=== PATIENT | female | born 1970 | race Caucasian/White ===

== ENCOUNTER 2016-11-11 19:07 | Emergency (ER) | payer MEDICAID ==
[~2016-11-11] VITALS: Ht 152.4 cm; Wt 70.0 kg
[~2016-11-11 19:07] MED LIST: FERR-43 PO; SIMV20TA2 PO
[2016-11-11] MEDS ORDERED: MORPHINE SULFATE 4 MG/ML CPJ (NOT FOR IM USE) IV STA (22:52)
[2016-11-11] MEDS ORDERED: ONDANSETRON HCL 4MG/2ML VIAL IV STA (22:52)
[2016-11-11 23:13] LABS: BASOPHILS % 1.1 % (0.0-2.0); EOSINOPHILS % 6.1 % (0.0-5.0); HEMATOCRIT. 34.1 % (36.0-48.0); HEMOGLOBIN. 11.5 g/dL (12.0-16.0); MEAN CORPUSCULAR HEMOGLOBIN 29.8 pg (28.0-32.0); MEAN CORPUSCULAR VOLUME 88.5 fL (81.0-99.0); MEAN PLATELET VOLUME 7.6 fl (7.4-10.4); MONOCYTES % 9.9 % (2.0-8.0); NEUTROPHILS % 42.9 % (40.0-76.0); PLATELET 328 x1000/uL (130-400); RED BLOOD CELL COUNT 3.86 mill/uL (4.2-5.4); RED CELL DISTRIBUTION WIDTH 13.5 % (11.6-14.6)
[2016-11-11 23:15] LABS: CHLORIDE 105 mEq/L (98-107)
[2016-11-11 23:17] LABS: CARBON DIOXIDE 25 mEq/L (21-32)
[2016-11-11] MEDS ORDERED: KETOROLAC 30MG/ML VIAL IV ONE (23:30)
[2016-11-11 23:58] VITALS: BP 116/79
== END 2016-11-12 02:09 | disposition home or self-care (01) ==
LOC: ER 22:14
DX: S29.012A Strain of muscle and tendon of back wall of thorax, initial encounter (principal); J45.909 Unspecified asthma, uncomplicated; K76.0 Fatty (change of) liver, not elsewhere classified; Z98.890 Other specified postprocedural states; X58.XXXA Exposure to other specified factors, initial encounter; Y93.89 Activity, other specified; Y92.89 Other specified places as the place of occurrence of the external cause; Y99.8 Other external cause status
CPT/HCPCS: 36415; 71010; 72128; 80048; 81025; 85025; 93005; 96374; 99285; J1885; Z7610

== ENCOUNTER 2023-02-12 06:24 | Emergency (ER) | payer MEDICAID, OTHER ==
[~2023-02-12] VITALS: Ht 152.4 cm; Wt 69.0 kg
[~2023-02-12 06:24] MED LIST changes: +SIMV-343 PO; -SIMV20TA2 PO
[2023-02-12 06:37] VITALS: O2SAT 98
[2023-02-12] MEDS ORDERED: KETOROLAC 15MG/ML VIAL IM ONE (07:30)
[2023-02-12] MEDS ORDERED: MECLIZINE 25MG TABLET PO ONE (07:45)
[2023-02-12] MEDS ORDERED: MECLIZINE 12.5MG TABLET PO SCH (08:00)
[2023-02-12] MEDS ORDERED: MECL-159 MT (09:13)
[2023-02-12 09:30] VITALS: BP 143/80; PULSE 72; RESP 18; TEMP 98.7
== END 2023-02-12 09:31 | disposition home or self-care (01) ==
LOC: ER 06:24
DX: R42 Dizziness and giddiness (principal); R51.9 Headache, unspecified; J45.909 Unspecified asthma, uncomplicated; E78.00 Pure hypercholesterolemia, unspecified
CPT/HCPCS: 99285; 70450; 81025; 96372; J8597; J1885